=== PATIENT | female | born 1965 | race Caucasian/White ===

== ENCOUNTER 2025-05-28 08:20 | Outpatient (OUT) | payer OTHER, SELFPAY ==
--- NOTE | 2025-05-28 08:31 | MM_ITS ---
Patient Name: DANICA ROSS MR#: [id number] : 1965 Exam Date: 05/28/2025 Ordering Doctor: DR GARY GRIGGS Daya RADIOLOGY REPORT PROCEDURE: MM TOMOSYNTHESIS SCREENING BI COMPARISON: MM TOMOSYNTHESIS SCREENING BI, 03/11/2024. MM TOMOSYNTHESIS SCREENING BI, 01/30/2023. MM TOMOSYNTHESIS SCREENING BI, 01/05/2022. INDICATIONS: Screening Calculator Name NCI Breast Cancer Risk Assessment Tool 5 Year Breast Cancer Risk Not Reported. Lifetime Breast Cancer Risk Not Reported. Personal Breast Cancer No Personal Ovarian Cancer No Treatments None Family Cancers None LOCATION: [facility] BREAST COMPOSITION: The breasts are almost entirely fatty. FINDINGS: RIGHT BREAST: No significant suspicious finding. LEFT BREAST: No significant suspicious finding. DIAGNOSTIC CATEGORY 1--NEGATIVE. RECOMMENDATIONS: ROUTINE MAMMOGRAM AND CLINICAL EVALUATION IN 12 MONTHS. Dictated by: Reece Zepeda DO on 05/28/2025 at 11:30 Approved by: Reece Zepeda DO on 05/28/2025 at 11:36
== END 2025-05-28 08:21 | disposition home or self-care (01) ==
LOC: MAMMO 08:27
PROVIDERS: PCP Nurse Practitioner Family; Visit Provider Midwife
DX: Z12.31 Encounter for screening mammogram for malignant neoplasm of breast (principal)
CPT/HCPCS: 77063; 77067